=== PATIENT | female | born 1990 | race Caucasian/White ===

== ENCOUNTER 2022-01-24 21:20 | Emergency (ER) | payer MEDICAID ==
[2022-01-24] MEDS ORDERED: LORazepam 0.5 MG Tab PO ONE ×2 (21:21→22:40)
[2022-01-24] MEDS ORDERED: Sodium Chloride 0.9% 10 ML Syringe FLUSH PRN (21:44)
[2022-01-24 22:29] LABS: ANION GAP 15.7 mEq/L (7-13); CHLORIDE,CL 110 mmol/L (98-107); SODIUM,NA 148 mmol/L (136-145)
[2022-01-24] MEDS ORDERED: LORazepam 0.5 MG Tab ONE (23:17)
[2022-01-24 23:38] VITALS: BP 125/81; PULSE 96
== END 2022-01-24 23:28 | disposition home or self-care (01) ==
LOC: DL.ED 21:20
DX: R07.82 Intercostal pain (principal); R07.2 Precordial pain; F41.9 Anxiety disorder, unspecified
CPT/HCPCS: 36415; 80053; 83690; 83735; 84443; 84484; 84703; 85025; 85379; 86140; 93005; 99285; A9270; J3490

== ENCOUNTER 2024-11-13 10:39 | Emergency (ER) | payer BC, MEDICAID ==
[2024-11-13 10:48] VITALS: BP 112/57; PULSE 116
[2024-11-13] MEDS: Take Home: Acetaminophen/HYDROcodone 325-5 MG, 5 Tab Pack PO ONE (11:12)
[2024-11-13] MEDS: Take Home: Amoxicillin/Clavulanate K 875-125 MG Tab, 6 Tab Pack PO ONE (11:12)
[2024-11-13] MEDS ORDERED: Take Home: Acetaminophen/HYDROcodone 325-5 MG, 5 Tab Pack PO ONE (11:30)
== END 2024-11-13 11:16 | disposition home or self-care (01) ==
LOC: DL.ED 10:39
DX: H66.001 Acute suppurative otitis media without spontaneous rupture of ear drum, right ear (principal); H60.391 Other infective otitis externa, right ear
CPT/HCPCS: 99282; A9270

== ENCOUNTER 2025-01-24 15:13 | Emergency (ER) | payer BC ==
[2025-01-24 15:36] LABS: BASOPHILS PERCENT AUTO 0.2 % (0.0-1.0); EOSINOPHILS PERCENT AUTO 1.8 % (1.0-3.0); HEMATOCRIT 44.7 % (37.0-47.0); HEMOGLOBIN 14.1 g/dL (12.0-16.0); MEAN CORPUSCULAR HEMOGLOBIN 26.4 pg (27.0-34.0); MEAN CORPUSCULAR HGB CONC 31.5 g/dL (33.0-35.0); MEAN CORPUSCULAR VOLUME 83.7 fL (80-100); MONOCYTES PERCENT AUTO 5.2 % (2-8); NEUTROPHILS PERCENT AUTO 76.8 % (42.2-75.2); PLATELET COUNT,PLT 298 10^3/uL (150-450); RED BLOOD CELL COUNT 5.34 10^6/uL (4.2-5.4); WHITE BLOOD CELL COUNT,WBC 11.8 10^3/uL (5.0-10.0)
[2025-01-24 16:06] LABS: A/G RATIO 1.1; ALANINE AMINOTRANSFERASE,ALT 58 U/L (14-59); ALBUMIN 3.8 g/dL (3.4-5.0); ALKALINE PHOSPHATASE 104 U/L (46-116); ANION GAP 14.9 mEq/L (7-13); ASPARTATE AMNIOTRANSFERASE,AST 29 U/L (15-37); BILIRUBIN TOTAL 0.8 mg/dL (0.2-1.0); BLOOD UREA NITROGEN,BUN 9 mg/dL (7-18); BUN/CREATININE RATIO 7.4 (No establ ref range); CALCIUM 9.6 mg/dL (8.5-10.1); CARBON DIOXIDE,CO2 26 mmol/L (21-32); CHLORIDE,CL 110 mmol/L (98-107); CREATININE 1.22 mg/dL (0.55-1.02); EST CRCL DRUG DOSING (CG) 60.83 mL/min; GLUCOSE RANDOM 109 mg/dL (70-99); MAGNESIUM 1.7 mg/dL (1.8-2.4); POTASSIUM,K 3.9 mmol/L (3.5-5.1); PROTEIN TOTAL,TP 7.3 g/dL (6.4-8.2); SODIUM,NA 147 mmol/L (136-145); T4 FREE 1.25 ng/dL (0.76-1.46); TSH ULTRASENSITIVE 0.71 uIU/mL (0.36-3.74)
[2025-01-24 16:09] LABS: ESTIMATED GFR 60 mL/min (>=60); ETHANOL BLOOD MEDICAL < 3 mg/dL (0)
[2025-01-24 17:36] LABS: AMPHETAMINES,URINE POSITIVE (NEGATIVE); BARBITURATES,URINE NEGATIVE (NEGATIVE); BENZODIAZEPINE,URINE NEGATIVE (NEGATIVE); MDMA (ECSTASY), URINE POSITIVE (NEGATIVE); METHADONE,URINE NEGATIVE (NEGATIVE); METHAMPHETAMINES,URINE POSITIVE (NEGATIVE); OPIATES,URINE NEGATIVE (NEGATIVE); PHENCYCLIDINE,URINE NEGATIVE (NEGATIVE); TCA,URINE NEGATIVE (NEGATIVE)
[2025-01-24 17:37] LABS: OXYCODONE,URINE NEGATIVE (NEGATIVE)
[2025-01-24 20:09] VITALS: BP 140/86; PULSE 78
== END 2025-01-24 17:32 ==
LOC: DL.ED 15:13
DX: R45.851 Suicidal ideations (principal); F19.10 Other psychoactive substance abuse, uncomplicated; F41.9 Anxiety disorder, unspecified; Z86.16 Personal history of COVID-19
CPT/HCPCS: 36415; 80053; 80305-QW; 80307; 81025; 83735; 84439; 84443; 85025; 99285

== ENCOUNTER 2025-03-05 15:31 | Emergency (ER) | payer BC, OTHER ==
[2025-03-05 15:45] VITALS: PULSE 82
[2025-03-05 15:53] LABS: BASOPHILS PERCENT AUTO 0.4 % (0.0-1.0); EOSINOPHILS PERCENT AUTO 2.1 % (1.0-3.0); HEMATOCRIT 43.9 % (37.0-47.0); HEMOGLOBIN 14.1 g/dL (12.0-16.0); LYMPHOCYTES PERCENT AUTO 22.5 % (20.5-50.1); MEAN CORPUSCULAR HEMOGLOBIN 27.1 pg (27.0-34.0); MEAN CORPUSCULAR HGB CONC 32.1 g/dL (33.0-35.0); MEAN CORPUSCULAR VOLUME 84.4 fL (80-100); MONOCYTES PERCENT AUTO 7.4 % (2-8); NEUTROPHILS PERCENT AUTO 67.6 % (42.2-75.2); PLATELET COUNT,PLT 246 10^3/uL (150-450)
[2025-03-05 16:21] LABS: A/G RATIO 1.1; ACETAMINOPHEN 0 ug/mL (10-30 (Therapeutic)); ALANINE AMINOTRANSFERASE,ALT 41 U/L (14-59); ALBUMIN 3.7 g/dL (3.4-5.0); ALKALINE PHOSPHATASE 91 U/L (46-116); ANION GAP 14.6 mEq/L (7-13); ASPARTATE AMNIOTRANSFERASE,AST 22 U/L (15-37); BILIRUBIN TOTAL 0.5 mg/dL (0.2-1.0); BLOOD UREA NITROGEN,BUN 11 mg/dL (7-18); BUN/CREATININE RATIO 9.6 (No establ ref range); CALCIUM 9.5 mg/dL (8.5-10.1); CARBON DIOXIDE,CO2 27 mmol/L (21-32); CHLORIDE,CL 108 mmol/L (98-107); CREATININE 1.14 mg/dL (0.55-1.02); EST CRCL DRUG DOSING (CG) 65.09 mL/min; ESTIMATED GFR 65 mL/min (>=60); ETHANOL BLOOD MEDICAL < 3 mg/dL (0); GLUCOSE RANDOM 104 mg/dL (70-99); MAGNESIUM 1.8 mg/dL (1.8-2.4); POTASSIUM,K 4.6 mmol/L (3.5-5.1); SODIUM,NA 145 mmol/L (136-145); TSH ULTRASENSITIVE 0.67 uIU/mL (0.36-3.74)
[2025-03-05 16:28] LABS: APPEARANCE,URINE SLIGHTLY CLOUDY (CLEAR); BILIRUBIN,URINE NEGATIVE (NEGATIVE); COLOR,URINE YELLOW (YELLOW); GLUCOSE,URINE NEGATIVE (NEGATIVE); KETONES,URINE NEGATIVE (NEGATIVE); LEUKOCYTE ESTERASE,URINE NEGATIVE (NEGATIVE); NITRITE,URINE NEGATIVE (NEGATIVE); OCCULT BLOOD,URINE NEGATIVE (NEGATIVE); PROTEIN,URINE 100 (NEGATIVE); UROBILINOGEN,URINE 0.2 mg/dL (0.2-1.0)
[2025-03-05 16:31] LABS: MDMA (ECSTASY), URINE NEGATIVE (NEGATIVE); METHADONE,URINE NEGATIVE (NEGATIVE); METHAMPHETAMINES,URINE POSITIVE (NEGATIVE)
[2025-03-05 16:32] LABS: AMPHETAMINES,URINE POSITIVE (NEGATIVE); BARBITURATES,URINE NEGATIVE (NEGATIVE); BENZODIAZEPINE,URINE NEGATIVE (NEGATIVE); OPIATES,URINE NEGATIVE (NEGATIVE); OXYCODONE,URINE NEGATIVE (NEGATIVE); PHENCYCLIDINE,URINE NEGATIVE (NEGATIVE); TCA,URINE NEGATIVE (NEGATIVE)
[2025-03-05 16:37] LABS: AMORPHOUS SEDIMENT,URINE FEW /HPF (NOT SEEN); BACTERIA,URINE FEW /HPF (0-FEW/HPF); EPITHELIAL CELLS,URINE MODERATE /HPF (NOT SEEN); MUCUS,URINE MODERATE /LPF (NOT SEEN); RBC,URINE 0-5 /HPF (0-5); WBC,URINE 0-5 /HPF (0-5/HPF)
[2025-03-05 16:38] LABS: HYALINE CASTS,URINE FEW
[2025-03-05 16:49] VITALS: BP 105/52
== END 2025-03-05 16:56 ==
LOC: DL.ED 15:31
DX: R45.851 Suicidal ideations (principal); F15.10 Other stimulant abuse, uncomplicated; E66.9 Obesity, unspecified
CPT/HCPCS: 36415; 80053; 80143; 80179; 80305-QW; 80307; 81001; 81025; 83735; 84443; 84484; 85025; 99285

== ENCOUNTER 2025-05-21 20:14 | Emergency (ER) | payer BC, MEDICAID ==
[2025-05-21] MEDS ORDERED: Sodium Chloride 0.9% 10 ML Syringe FLUSH PRN (20:19)
[2025-05-21 20:38] VITALS: BP 158/85; PULSE 129
[2025-05-21 20:39] LABS: BASOPHILS PERCENT AUTO 0.2 % (0.0-1.0); EOSINOPHILS PERCENT AUTO 1.4 % (1.0-3.0); LYMPHOCYTES PERCENT AUTO 19.4 % (20.5-50.1); MONOCYTES PERCENT AUTO 5.5 % (2-8); NEUTROPHILS PERCENT AUTO 73.5 % (42.2-75.2); PLATELET COUNT,PLT 307 10^3/uL (150-450); RED BLOOD CELL COUNT 4.88 10^6/uL (4.2-5.4); WHITE BLOOD CELL COUNT,WBC 13.4 10^3/uL (5.0-10.0)
[2025-05-21 21:05] LABS: ALANINE AMINOTRANSFERASE,ALT 30 U/L (14-59); ASPARTATE AMNIOTRANSFERASE,AST 13 U/L (15-37); BILIRUBIN TOTAL 0.5 mg/dL (0.2-1.0); BLOOD UREA NITROGEN,BUN 7 mg/dL (7-18); CARBON DIOXIDE,CO2 28 mmol/L (21-32); CHLORIDE,CL 106 mmol/L (98-107); CREATININE 0.95 mg/dL (0.55-1.02); EST CRCL DRUG DOSING (CG) 77.38 mL/min; GLUCOSE RANDOM 111 mg/dL (70-99); POTASSIUM,K 3.6 mmol/L (3.5-5.1); PROTEIN TOTAL,TP 7.1 g/dL (6.4-8.2); SODIUM,NA 142 mmol/L (136-145)
[2025-05-21 21:06] LABS: A/G RATIO 0.87; ESTIMATED GFR 80 mL/min (>=60)
[2025-05-21] MEDS: GI Cocktail Oral Solution 30 ML PO ONE (21:45)
[2025-05-21 22:41] LABS: AMPHETAMINES,URINE NEGATIVE (NEGATIVE); BARBITURATES,URINE NEGATIVE (NEGATIVE); MDMA (ECSTASY), URINE NEGATIVE (NEGATIVE); METHAMPHETAMINES,URINE POSITIVE (NEGATIVE); OPIATES,URINE NEGATIVE (NEGATIVE); OXYCODONE,URINE NEGATIVE (NEGATIVE); PHENCYCLIDINE,URINE NEGATIVE (NEGATIVE); TCA,URINE NEGATIVE (NEGATIVE)
[2025-05-21] MEDS: Ondansetron 4 MG/2 ML SDV IVPUSH ONE (23:23)
[2025-05-21] MEDS: Ketorolac 30 MG/ML SDV IVPUSH ONE (23:23)
== END 2025-05-22 00:29 | disposition home or self-care (01) ==
LOC: DL.ED 20:14
DX: R07.9 Chest pain, unspecified (principal); M54.9 Dorsalgia, unspecified; F15.10 Other stimulant abuse, uncomplicated; E66.9 Obesity, unspecified; Z86.16 Personal history of COVID-19; Z68.43 Body mass index [BMI] 50.0-59.9, adult
CPT/HCPCS: 36415; 71045; 80053; 80305; 80307; 83735; 84484; 85025; 93005; 93010; 96361; 96374; 96375; 99284; 99285; A9270; J1885; J2405; J7030

== ENCOUNTER 2025-09-24 19:38 | Emergency (ER) | payer SELFPAY ==
[2025-09-24 19:50] VITALS: BP 124/83; PULSE 99
[2025-09-24 19:53] LABS: APPEARANCE,URINE SLIGHTLY CLOUDY (CLEAR); GLUCOSE,URINE NEGATIVE (NEGATIVE); OCCULT BLOOD,URINE LARGE (NEGATIVE)
[2025-09-24 20:01] LABS: EPITHELIAL CELLS,URINE MODERATE /HPF (NOT SEEN)
[2025-09-24] MEDS: Nitrofurantoin Monohydrate/Macrocrystalline 100 MG Cap PO ONE (20:16)
[2025-09-24] MEDS: Phenazopyridine 95 MG Tab PO ONE (20:16)
== END 2025-09-24 20:17 | disposition home or self-care (01) ==
LOC: DL.ED 19:38
DX: N39.0 Urinary tract infection, site not specified (principal); E66.9 Obesity, unspecified; Z86.16 Personal history of COVID-19; Z68.42 Body mass index [BMI] 45.0-49.9, adult
CPT/HCPCS: 81001; 81025; 87086; 87088; 87186; 99284; A9270